=== PATIENT | female | born 1935 | race Caucasian/White ===

== ENCOUNTER 2017-06-19 09:42 | Outpatient (CLI) | payer MEDICARE, BC ==
[~2017-06-19 09:42] MED LIST: ACET-2119 PO; BAC10T PO; EZET1TAB33; FERR325T40 PO; GABA100C PO; LEVOTHYROXINE; LOPE2CAP PO; METF500T PO; TRAZ-91 PO; VIT D; [UNRECOGNIZED DRUG - CODE]
[2017-06-19 10:39] LABS: BASOPHILS % (AUTO) 0.4 % (0-1); EOSINOPHILS # (AUTO) 0.1 X10'3 (0-0.9); HEMATOCRIT 35.2 % (35.0-45.0); HEMOGLOBIN 11.8 g/dl (12.0-16.0); LYMPHOCYTES # (AUTO) 1.4 X10'3 (1.1-4.8); LYMPHOCYTES % (AUTO) 27.2 % (21-51); MEAN CORPUSCULAR HEMOGLOBIN 34.5 PG (27.0-31.0); MEAN CORPUSCULAR HGB CONC 33.7 % (33.0-36.5); MEAN CORPUSCULAR VOLUME 102.3 FL (78-98); MEAN PLATELET VOLUME 7.6 FL (7.4-10.4); MONOCYTES # (AUTO) 0.4 X10'3 (0-0.9); NEUTROPHILS # (AUTO) 3.4 X10'3 (1.8-7.7); NEUTROPHILS % (AUTO) 64.4 % (42-75); PLATELET COUNT 252 X10'3 (140-440); RED BLOOD COUNT 3.44 X10'6 (4.20-5.60); RED CELL DISTRIBUTION WIDTH 13.9 % (11.5-14.5); WHITE BLOOD COUNT 5.3 X10'3 (4.5-11.0)
[2017-06-19 10:43] LABS: CLARITY,URINE CLEAR (Clear); COLOR,URINE YELLOW (Yellow); GLUCOSE, URINE NEGATIVE (Neg); KETONES,URINE NEGATIVE (Neg); LEUKOCYTE ESTERASE ,URINE SMALL (Neg); NITRITES, URINE NEGATIVE (Neg); OCCULT BLOOD,URINE NEGATIVE (Neg); PROTEIN,URINE NEGATIVE (Neg); UROBILINOGEN,URINE 0.2 E.U/dL (0.2-1.0)
[2017-06-19 10:47] LABS: UA COLLECTION TYPE CLN CATCH MIDSTREAM
[2017-06-19 10:48] LABS: BACTERIA,URINE NONE SEEN /HPF (Neg); HYALINE CASTS 0-3 /LPF (NEGATIVE); RBC,URINE NONE SEEN /HPF (0-2); SQUAMOUS EPITHELIAL CELL,UR FEW /LPF (FEW); WBC,URINE 0-4 /HPF (0-4)
[2017-06-19 10:54] LABS: ALANINE AMINOTRANSFERASE 41 U/L (12-78); ALBUMIN 3.9 G/DL (3.4-5.0); ALKALINE PHOSPHATASE 39 IU/L (46-116); ANION GAP 7 (8-16); ASPARTATE AMINO TRANSFERASE 32 U/L (10-37); BILIRUBIN,TOTAL 0.3 MG/DL (0.1-1.0); BLOOD UREA NITROGEN 26 MG/DL (7-18); BUN/CREATININE RATIO 23.6 (6.6-38.0); CALCIUM 9.5 MG/DL (8.5-10.1); CHLORIDE 104 MMOL/L (99-107); GLUCOSE 118 MG/DL (70-104); POTASSIUM 4.6 MMOL/L (3.5-5.1); SODIUM 141 MMOL/L (135-145); TOTAL CARBON DIOXIDE 30.1 MMOL/L (24-32); eGFR 48 ML/MIN
[2017-06-19 11:40] LABS: HEMOGLOBIN A1C 5.8 % (4.5-6.2)
== END 2017-06-19 23:59 | disposition home or self-care (01) ==
LOC: LAB 09:42
PROVIDERS: ATTEND Specialist
DX: Z01.818 Encounter for other preprocedural examination (principal); Z51.81 Encounter for therapeutic drug level monitoring; N39.0 Urinary tract infection, site not specified; E11.8 Type 2 diabetes mellitus with unspecified complications; F17.200 Nicotine dependence, unspecified, uncomplicated; Z90.710 Acquired absence of both cervix and uterus; Z98.890 Other specified postprocedural states
CPT/HCPCS: 36415; 80053; 81001; 83036; 85025; 85610; 87070; 87088

== ENCOUNTER 2017-07-03 10:41 | Inpatient (IN) | payer MEDICARE, BC ==
[~2017-07-03] VITALS: Ht 162.6 cm; Wt 70.0 kg
[2017-07-03] VITALS (18 sets, daily range): BP systolic 78–160; BP diastolic 38–90
[~2017-07-03 10:41] MED LIST changes: -ACET-2119 PO; -BAC10T PO; +CHOL100046 PO; -EZET1TAB33; +FERR325T32 PO; -FERR325T40 PO; +HYDR-565 PO; +LEVO50TA PO; -LEVOTHYROXINE; -LOPE2CAP PO; +MAGN500C16 PO; +OMEG1CAP2 PO; +OMEP20CA10 PO; +SIMV20TA5 PO; +VANCOMYCIN INJ 1000 MG in NORMAL SALINE 250ml IV.SOLN IV ONE; -VIT D; +acetaminophen 325mg tablet PO ONE; +ceFAZolin 2gm in dextrose, iso 100 ML IV ONE; +famotidine 20mg tablet PO ONE; +gabapentin 300mg capsule PO ONE; +oxyCODONE SR 10mg (sust. release) tab PO ONE; +ringers solution, lacted 1,000 ML IV SCH; +tranexamic acid inj. 1,000 MG in normal saline 100ml IV soln 90 ML IV ONE
[2017-07-03] MEDS ORDERED: LIDOcaine 1% (10mg/ml) 2ml vial ONE (11:59)
[2017-07-03] MEDS ORDERED: bacitracin inj 150,000 UNIT in sodium chloride irrig. sol 3,000 ML IR ONE (12:00)
[2017-07-03] MEDS: normal saline 500ml IV soln 500 ML IV SCH (12:50)
[2017-07-03] MEDS ORDERED: ROPIVAcaine 0.5% (5mg/ml) 30ml vial ONE ×2 (13:27→13:48)
[2017-07-03] MEDS ORDERED: MORPHINE SULFATE/PF 0.5 MG/ML 10ML AMPUL ONE (13:48)
[2017-07-03] MEDS ORDERED: tetracaine 1% (10mg/ml) pres. free inj. ONE (13:48)
[2017-07-03] MEDS ORDERED: MIDAZolam 1mg/ml 10ml vial ONE (13:50)
[2017-07-03] MEDS ORDERED: fentaNYL/PF 50MCG/1 ML 2ML syringe ONE (13:50)
[2017-07-03] MEDS ORDERED: propofol inj 20 ML IV ONE (14:16)
[2017-07-03] MEDS ORDERED: ePHEDrine 50MG/ML INJ. ONE (14:31)
[2017-07-03] MEDS ORDERED: naloxone 2mg/2ml inj 2 MG in normal saline 500ml IV soln 500 ML IV PRN (15:08)
[2017-07-03] MEDS ORDERED: ringers solution, lacted 1,000 ML IV SCH (15:08)
[2017-07-03] MEDS ORDERED: proCHLORperazine 10 MG/2 ml inj IV PRN (15:10)
[2017-07-03] MEDS ORDERED: diphenhydrAMINE 50 mg/ml inj IV PRN (15:10)
[2017-07-03] MEDS ORDERED: ondansetron/PF 4mg/2ml inj IV PRN ×2 (15:10)
[2017-07-03] MEDS ORDERED: meperidine/PF 25mg/ml syringe IV PRN ×3 (15:10)
[2017-07-03] MEDS ORDERED: ceFAZolin 1000mg inj ONE (15:37)
[2017-07-03] MEDS ORDERED: magnesium hydroxide 30ml (MOM) UD suspension PO PRN (15:50)
[2017-07-03] MEDS ORDERED: diphenhydrAMINE 25mg capsule PO PRN ×2 (15:50)
[2017-07-03] MEDS ORDERED: MESSAGE TO PHARMACY PO ONE (15:50)
[2017-07-03] MEDS ORDERED: dextrose 50%-water 50ml dispensing syringe IV PRN ×2 (15:50)
[2017-07-03] MEDS ORDERED: acetaminophen 325mg tablet PO PRN (15:50)
[2017-07-03] MEDS ORDERED: HYDROmorphone inj. 0.5 MG/0.5 ML DISP.SYRIN IV PRN (15:50)
[2017-07-03] MEDS ORDERED: dextrose ORAL solution 15 GM/59 ML bottle PO PRN ×2 (15:50)
[2017-07-03] MEDS ORDERED: bisacodyl 10mg suppository rectal RC PRN (15:50)
[2017-07-03] MEDS ORDERED: insulin Lispro (HumaLOG) vial - multi-dose SQ SCH (15:50)
[2017-07-03] MEDS ORDERED: glucagon, human recombinant 1mg kit SUBCUT PRN (15:50)
[2017-07-03] MEDS: cefazolin 1gm/NS 100mL 100 ML IV SCH (17:52)
[2017-07-03] MEDS: potassium cl 20mEq in 1/2 NS 1,000 ML IV SCH ×2 (17:53→23:50)
[2017-07-03] MEDS: ondansetron/PF 4mg/2ml inj IV PRN (18:57)
[2017-07-03] MEDS ORDERED: vancomycin/NS 1 GM ADD-VANTAGE 250 ML IV SCH (20:00)
[2017-07-03] MEDS: insulin glargine (Lantus) pen - multi-dose SQ SCH (21:00)
[2017-07-03] MEDS: metFORMIN 500mg tablet PO SCH (21:25)
[2017-07-03] MEDS: sennosides 8.6mg tablet PO SCH (21:25)
[2017-07-03] MEDS: acetaminophen 325mg tablet PO SCH (21:26)
[2017-07-03] MEDS: ascorbic acid 500mg tablet PO SCH (21:26)
[2017-07-04] MEDS: cefazolin 1gm/NS 100mL 100 ML IV SCH (00:28)
[2017-07-04 02:00] VITALS: BP 100/54
[2017-07-04] MEDS: oxyCODONE IR 5mg (immed. release) tablet PO PRN ×4 (02:59→19:40)
[2017-07-04] MEDS: acetaminophen 325mg tablet PO SCH ×4 (02:59→20:38)
[2017-07-04] MEDS: potassium cl 20mEq in 1/2 NS 1,000 ML IV SCH (05:24)
[2017-07-04 06:00] VITALS: BP 94/72
[2017-07-04 06:26] LABS: BASOPHILS % (AUTO) 0.1 % (0-1); EOSINOPHILS # (AUTO) 0.1 X10'3 (0-0.9); EOSINOPHILS % (AUTO) 1.4 % (0-6); HEMATOCRIT 25.5 % (35.0-45.0); HEMOGLOBIN 8.5 g/dl (12.0-16.0); LYMPHOCYTES # (AUTO) 1.1 X10'3 (1.1-4.8); LYMPHOCYTES % (AUTO) 16.5 % (21-51); MEAN CORPUSCULAR HEMOGLOBIN 33.9 PG (27.0-31.0); MEAN CORPUSCULAR HGB CONC 33.3 % (33.0-36.5); MEAN CORPUSCULAR VOLUME 101.8 FL (78-98); MEAN PLATELET VOLUME 7.2 FL (7.4-10.4); MONOCYTES # (AUTO) 0.5 X10'3 (0-0.9); MONOCYTES % (AUTO) 7.9 % (2-12); NEUTROPHILS # (AUTO) 4.9 X10'3 (1.8-7.7); NEUTROPHILS % (AUTO) 74.1 % (42-75); PLATELET COUNT 190 X10'3 (140-440); RED CELL DISTRIBUTION WIDTH 13.8 % (11.5-14.5); WHITE BLOOD COUNT 6.6 X10'3 (4.5-11.0)
[2017-07-04 06:34] LABS: INR 1.2 INR; PROTHROMBIN TIME 12.2 SECONDS (9.0-12.0)
[2017-07-04 06:58] LABS: ANION GAP 5 (8-16); CHLORIDE 105 MMOL/L (99-107); POTASSIUM 5.7 MMOL/L (3.5-5.1); SODIUM 138 MMOL/L (135-145); TOTAL CARBON DIOXIDE 28.5 MMOL/L (24-32)
[2017-07-04] MEDS: ascorbic acid 500mg tablet PO SCH ×2 (08:00→20:38)
[2017-07-04] MEDS: pantoprazole 40mg Tablet.DR PO SCH (08:01)
[2017-07-04] MEDS: atorvastatin 10mg tablet PO SCH (08:01)
[2017-07-04] MEDS: multivitamins, therapeutics tablet PO SCH (08:01)
[2017-07-04] MEDS: levoTHYROXINE 25mcg tablet PO SCH (08:01)
[2017-07-04 10:00] VITALS: BP 137/81
[2017-07-04] MEDS ORDERED: warfarin 7.5mg tablet PO ONE (10:00)
[2017-07-04] MEDS: sodium chloride 0.45% 1,000 ML IV SCH ×2 (11:16→19:44)
[2017-07-04] MEDS: normal saline 500ml IV soln 500 ML IV SCH (13:33)
[2017-07-04 16:26] VITALS: BP 119/58
[2017-07-04] MEDS: ondansetron/PF 4mg/2ml inj IV PRN (17:03)
[2017-07-04] MEDS ORDERED: metoclopramide 5 mg/ml inj IV PRN (18:10)
[2017-07-04 18:30] VITALS: BP 140/66
[2017-07-04] MEDS: sennosides 8.6mg tablet PO SCH (20:37)
[2017-07-04] MEDS: metFORMIN 500mg tablet PO SCH (20:37)
[2017-07-04] MEDS: insulin glargine (Lantus) pen - multi-dose SQ SCH (20:40)
[2017-07-04 22:00] VITALS: BP 150/66
[2017-07-05] MEDS: oxyCODONE IR 5mg (immed. release) tablet PO PRN ×3 (00:53→17:37)
[2017-07-05] MEDS: acetaminophen 325mg tablet PO SCH ×3 (01:54→14:08)
[2017-07-05 06:00] VITALS: BP 154/71
[2017-07-05 06:22] LABS: BASOPHILS % (AUTO) 0.3 % (0-1); EOSINOPHILS % (AUTO) 0 % (0-6); HEMATOCRIT 29.5 % (35.0-45.0); HEMOGLOBIN 10.1 g/dl (12.0-16.0); LYMPHOCYTES # (AUTO) 0.6 X10'3 (1.1-4.8); MEAN CORPUSCULAR HEMOGLOBIN 34.4 PG (27.0-31.0); MEAN CORPUSCULAR HGB CONC 34.4 % (33.0-36.5); MEAN PLATELET VOLUME 7.2 FL (7.4-10.4); MONOCYTES # (AUTO) 0.5 X10'3 (0-0.9); MONOCYTES % (AUTO) 6.9 % (2-12); NEUTROPHILS # (AUTO) 6.6 X10'3 (1.8-7.7); NEUTROPHILS % (AUTO) 84.8 % (42-75); PLATELET COUNT 239 X10'3 (140-440); RED BLOOD COUNT 2.95 X10'6 (4.20-5.60); RED CELL DISTRIBUTION WIDTH 13.9 % (11.5-14.5); WHITE BLOOD COUNT 7.8 X10'3 (4.5-11.0)
[2017-07-05 06:28] LABS: INR 1.7 INR; PROTHROMBIN TIME 17.6 SECONDS (9.0-12.0)
[2017-07-05] MEDS: multivitamins, therapeutics tablet PO SCH (08:24)
[2017-07-05] MEDS: pantoprazole 40mg Tablet.DR PO SCH (08:24)
[2017-07-05] MEDS: ascorbic acid 500mg tablet PO SCH ×2 (08:24→20:42)
[2017-07-05] MEDS: atorvastatin 10mg tablet PO SCH (08:24)
[2017-07-05] MEDS: levoTHYROXINE 25mcg tablet PO SCH (08:24)
[2017-07-05 10:00] VITALS: BP 150/68
[2017-07-05] MEDS ORDERED: warfarin 3mg tablet PO ONE (10:00)
[2017-07-05] MEDS: ondansetron/PF 4mg/2ml inj IV PRN (14:04)
[2017-07-05] MEDS ORDERED: acetaminophen 325mg tablet PO PRN (15:50)
[2017-07-05 18:30] VITALS: BP 143/75
[2017-07-05] MEDS: normal saline 500ml IV soln 500 ML IV SCH (19:02)
[2017-07-05] MEDS: metFORMIN 500mg tablet PO SCH (20:42)
[2017-07-05] MEDS: sennosides 8.6mg tablet PO SCH (20:43)
[2017-07-05] MEDS: insulin glargine (Lantus) pen - multi-dose SQ SCH (21:00)
[2017-07-05] MEDS ORDERED: gabapentin 100mg capsule PO SCH (21:00)
[2017-07-05 22:00] VITALS: BP 161/71
[2017-07-06] MEDS: oxyCODONE IR 5mg (immed. release) tablet PO PRN (05:28)
[2017-07-06 06:00] VITALS: BP 159/75
[2017-07-06 06:22] LABS: BASOPHILS # (AUTO) 0.1 X10'3 (0-0.2); BASOPHILS % (AUTO) 0.6 % (0-1); EOSINOPHILS % (AUTO) 0.1 % (0-6); HEMATOCRIT 29.9 % (35.0-45.0); HEMOGLOBIN 10.5 g/dl (12.0-16.0); LYMPHOCYTES # (AUTO) 0.9 X10'3 (1.1-4.8); LYMPHOCYTES % (AUTO) 10.2 % (21-51); MEAN CORPUSCULAR HEMOGLOBIN 34.9 PG (27.0-31.0); MEAN CORPUSCULAR HGB CONC 35.2 % (33.0-36.5); MEAN CORPUSCULAR VOLUME 99.1 FL (78-98); MEAN PLATELET VOLUME 7.3 FL (7.4-10.4); MONOCYTES # (AUTO) 0.7 X10'3 (0-0.9); NEUTROPHILS # (AUTO) 7.5 X10'3 (1.8-7.7); NEUTROPHILS % (AUTO) 81.1 % (42-75); PLATELET COUNT 274 X10'3 (140-440); RED BLOOD COUNT 3.02 X10'6 (4.20-5.60); RED CELL DISTRIBUTION WIDTH 13.6 % (11.5-14.5); WHITE BLOOD COUNT 9.3 X10'3 (4.5-11.0)
[2017-07-06 06:38] LABS: PROTHROMBIN TIME 20.2 SECONDS (9.0-12.0)
[2017-07-06] MEDS: atorvastatin 10mg tablet PO SCH (07:03)
[2017-07-06] MEDS: multivitamins, therapeutics tablet PO SCH (07:04)
[2017-07-06] MEDS: ascorbic acid 500mg tablet PO SCH (07:04)
[2017-07-06] MEDS: pantoprazole 40mg Tablet.DR PO SCH (07:04)
[2017-07-06] MEDS: levoTHYROXINE 25mcg tablet PO SCH (07:04)
[2017-07-06 10:00] VITALS: BP 124/69
[2017-07-06] MEDS ORDERED: warfarin 1mg tablet PO ONE (10:00)
== END 2017-07-06 13:40 | DRG 470 ==
LOC: PAS IN 12:33 → EDSTATUS 14:30 → ORTHO 4S 17:45
PROVIDERS: ADMIT Specialist; ATTEND Specialist
PROC: 3E0T3BZ Introduction of Anesthetic Agent into Peripheral Nerves and Plexi, Percutaneous Approach (ICD-10-PCS; 2017-07-03)
PROC: 0SRC0J9 Replacement of Right Knee Joint with Synthetic Substitute, Cemented, Open Approach (ICD-10-PCS; principal; 2017-07-03 13:41)
DX: M17.11 Unilateral primary osteoarthritis, right knee (principal); E11.9 Type 2 diabetes mellitus without complications; D62 Acute posthemorrhagic anemia; E03.9 Hypothyroidism, unspecified; K21.9 Gastro-esophageal reflux disease without esophagitis; E78.5 Hyperlipidemia, unspecified; I10 Essential (primary) hypertension; M21.161 Varus deformity, not elsewhere classified, right knee; M25.761 Osteophyte, right knee; Z96.641 Presence of right artificial hip joint; Z90.710 Acquired absence of both cervix and uterus; Z88.2 Allergy status to sulfonamides; Z79.84 Long term (current) use of oral hypoglycemic drugs; Z79.899 Other long term (current) drug therapy; Z79.01 Long term (current) use of anticoagulants; Z87.11 Personal history of peptic ulcer disease; Z87.891 Personal history of nicotine dependence
CPT/HCPCS: 36415; 73560; 80051; 82948; 85025; 85610; 97110; 97116; 97530; 97535; A6449; A6455; A7000; C1713; C1758; C1776; J0690; J1170; J1815; J2250; J2274; J2405; J2704; J2765; J2795; J3010; J3370; J3490; J7030; J7120

== ENCOUNTER 2020-04-23 19:01 | Emergency (ER) | payer MEDICARE, BC ==
[~2020-04-23] VITALS: Ht 165.1 cm; Wt 60.5 kg
[~2020-04-23 19:01] MED LIST changes: +HYDR-4353 PO; -HYDR-565 PO; -OMEP20CA10 PO; +OMEP20CA15 PO; +SIMV-42 PO; -SIMV20TA5 PO; -VANCOMYCIN INJ 1000 MG in NORMAL SALINE 250ml IV.SOLN IV ONE; -acetaminophen 325mg tablet PO ONE; -ceFAZolin 2gm in dextrose, iso 100 ML IV ONE; -famotidine 20mg tablet PO ONE; -gabapentin 300mg capsule PO ONE; -oxyCODONE SR 10mg (sust. release) tab PO ONE; -ringers solution, lacted 1,000 ML IV SCH; -tranexamic acid inj. 1,000 MG in normal saline 100ml IV soln 90 ML IV ONE
--- NOTE | 2020-04-23 19:05 | NUR ---
MARISABEL ([facility]) # [phone]
[2020-04-23] MEDS ORDERED: diazepam 5mg tablet PO ONE (19:25)
--- NOTE | 2020-04-23 20:33 | NUR ---
got pt up to the BR and she walked with a FWW and did fairly well.
[2020-04-23] MEDS ORDERED: WALKERFR (20:35)
[2020-04-23] MEDS ORDERED: ONDA4TAB6 PO (20:35)
[2020-04-23] MEDS ORDERED: HYDR-3965 PO (20:35)
[2020-04-23] MEDS ORDERED: METH-360 PO (20:36)
[2020-04-23 20:42] VITALS: BP 140/66
== END 2020-04-23 20:42 | disposition home or self-care (01) ==
LOC: ER 19:01
DX: S22.080A Wedge compression fracture of T11-T12 vertebra, initial encounter for closed fracture (principal); S29.019A Strain of muscle and tendon of unspecified wall of thorax, initial encounter; S39.012A Strain of muscle, fascia and tendon of lower back, initial encounter; E78.00 Pure hypercholesterolemia, unspecified; E11.9 Type 2 diabetes mellitus without complications; E07.9 Disorder of thyroid, unspecified; G89.29 Other chronic pain; M54.9 Dorsalgia, unspecified; Z90.49 Acquired absence of other specified parts of digestive tract; X50.0XXA Overexertion from strenuous movement or load, initial encounter; Z88.2 Allergy status to sulfonamides; Z79.899 Other long term (current) drug therapy; Z79.84 Long term (current) use of oral hypoglycemic drugs; Z98.890 Other specified postprocedural states; Y93.89 Activity, other specified; Y92.89 Other specified places as the place of occurrence of the external cause; Y99.8 Other external cause status
CPT/HCPCS: 72131; 72192; 99285

== ENCOUNTER 2020-04-28 06:57 | Inpatient (IN) | payer MEDICARE, BC ==
[~2020-04-28] VITALS: Ht 160 cm; Wt 60.5 kg
[~2020-04-28 06:57] MED LIST changes: +HYDR-3965 PO; +METH-360 PO; +ONDA4TAB6 PO; +WALKERFR
[2020-04-28] MEDS ORDERED: normal saline 1000ML IV soln IVB ONE (07:25)
[2020-04-28] MEDS ORDERED: morphine 4 MG/ML inj SYRINge IV ONE (07:25)
[2020-04-28] MEDS ORDERED: ondansetron/PF 4mg/2ml inj IV ONE (07:25)
--- NOTE | 2020-04-28 07:46 | NUR ---
Pt arrives to ER with back brace on, kept in place
[2020-04-28 08:10] LABS: CLARITY,URINE CLOUDY (Clear); COLOR,URINE YELLOW (Yellow); GLUCOSE, URINE NEGATIVE (Neg); KETONES,URINE NEGATIVE (Neg); LEUKOCYTE ESTERASE ,URINE LARGE (Neg); NITRITES, URINE NEGATIVE (Neg); OCCULT BLOOD,URINE SMALL (Neg); PROTEIN,URINE 30 mg/dl (Neg); UROBILINOGEN,URINE 0.2 E.U/dL (0.2-1.0)
[2020-04-28 08:18] LABS: UA COLLECTION TYPE CLN CATCH MIDSTREAM
[2020-04-28 08:19] LABS: BACTERIA,URINE 1+ /HPF (Neg); RBC,URINE 0-2 /HPF (0-2); WBC,URINE TNTC /HPF (0-4)
[2020-04-28 08:20] LABS: MUCUS STRANDS FEW /LPF (Neg); RENAL CELLS, URINE FEW /HPF; SQUAMOUS EPITHELIAL CELL,UR FEW /LPF (FEW); TRANSITIONAL EPI CELLS,URINE FEW /HPF
[2020-04-28 08:23] LABS: WBC CLUMPS,URINE FEW /HPF (NEGATIVE)
--- NOTE | 2020-04-28 08:24 | NUR ---
Pt feeling better after morphine. Lab at bedside to redraw.
[2020-04-28 08:36] LABS: BASOPHILS % (AUTO) 0.2 % (0-1); EOSINOPHILS % (AUTO) 0.6 % (0-6); HEMATOCRIT 27.9 % (35.0-45.0); HEMOGLOBIN 9.7 g/dl (12.0-16.0); LYMPHOCYTES # (AUTO) 1.3 X10'3 (1.1-4.8); LYMPHOCYTES % (AUTO) 21.5 % (21-51); MEAN CORPUSCULAR HEMOGLOBIN 38.1 PG (27.0-31.0); MEAN CORPUSCULAR HGB CONC 34.6 g/dL (33.0-36.5); MEAN CORPUSCULAR VOLUME 110.2 FL (78-98); MEAN PLATELET VOLUME 7.3 FL (7.4-10.4); MONOCYTES # (AUTO) 0.5 X10'3 (0-0.9); MONOCYTES % (AUTO) 9.1 % (2-12); NEUTROPHILS # (AUTO) 4.1 X10'3 (1.8-7.7); NEUTROPHILS % (AUTO) 68.6 % (42-75); PLATELET COUNT 264 X10'3 (140-440); RED BLOOD COUNT 2.53 X10'6 (4.20-5.60); RED CELL DISTRIBUTION WIDTH 14.6 % (11.5-14.5); WHITE BLOOD COUNT 5.9 X10'3 (4.5-11.0)
[2020-04-28 08:51] LABS: ALANINE AMINOTRANSFERASE 37 U/L (12-78); ALBUMIN 3.5 G/DL (3.4-5.0); ALBUMIN/GLOBULIN RATIO 0.5 (1.1-1.5); ALKALINE PHOSPHATASE 45 IU/L (46-116); ANION GAP 8 (8-16); ASPARTATE AMINO TRANSFERASE 40 U/L (10-37); BILIRUBIN,TOTAL 0.4 MG/DL (0.1-1.0); BLOOD UREA NITROGEN 63 MG/DL (7-18); BUN/CREATININE RATIO 55.3 (6.6-38.0); CHLORIDE 106 MMOL/L (99-107); CREATININE 1.14 MG/DL (0.40-0.90); GLUCOSE 106 MG/DL (70-104); POTASSIUM 4.4 MMOL/L (3.5-5.1); SODIUM 139 MMOL/L (135-145); TOTAL CARBON DIOXIDE 24.6 MMOL/L (24-32); TOTAL PROTEIN 10.1 G/DL (6.4-8.2); eGFR 45 ML/MIN
[2020-04-28 08:52] LABS: CALCIUM 13.1 MG/DL (8.5-10.1)
[2020-04-28 09:10] LABS: ANISOCYTOSIS 1+; PLATELET ESTIMATE NORMAL
[2020-04-28] MEDS ORDERED: CefTRIAXone/D5W-Rocephin 1gm 50 ML IV ONE (11:00)
[2020-04-28] MEDS ORDERED: TRAZ-251 PO (11:04)
[2020-04-28] MEDS ORDERED: GABA-530 PO (11:04)
[2020-04-28] MEDS ORDERED: METH750T3 PO (11:08)
[2020-04-28] MEDS: normal saline 1000ml 1,000 ML IV SCH (11:20)
[2020-04-28] MEDS ORDERED: magnesium 2GM in 50ml NS 50 ML IV PRN (11:20)
[2020-04-28] MEDS ORDERED: metoclopramide 5 mg/ml inj IV PRN (11:20)
[2020-04-28] MEDS ORDERED: magnesium Cl slow-release 64mg tablet PO PRN (11:20)
[2020-04-28] MEDS ORDERED: bisacodyl 10mg suppository rectal RC PRN (11:20)
[2020-04-28] MEDS ORDERED: acetaminophen 325mg tablet PO PRN ×2 (11:20)
[2020-04-28] MEDS ORDERED: mag hydrox/Alum hydrox/simeth 30ml oral suspension PO PRN (11:20)
[2020-04-28] MEDS ORDERED: magnesium 4gm in 100ml NS 100 ML IV PRN (11:20)
[2020-04-28] MEDS ORDERED: potassium Cl 20 mEq SR tablet PO PRN ×2 (11:20)
[2020-04-28] MEDS ORDERED: potassium CL 10mEq/100ml bag 100 ML IV PRN ×2 (11:20)
[2020-04-28] MEDS ORDERED: magnesium hydroxide 30ml (MOM) UD suspension PO PRN (11:20)
[2020-04-28] MEDS ORDERED: acetaminophen 650mg rectal suppository RC PRN (11:20)
[2020-04-28] MEDS ORDERED: HYDROcodone/acetaminophen 5mg/325mg tablet PO PRN (11:20)
[2020-04-28] MEDS ORDERED: ondansetron/PF 4mg/2ml inj IV PRN (11:20)
--- NOTE | 2020-04-28 12:12 | NUR ---
Assisted to commode, pivot transfer, to void, one person min assist
[2020-04-28] MEDS: HYDROcodone/acetaminophen 10/325mg tab PO PRN ×2 (12:29→19:18)
[2020-04-28 13:00] VITALS: BP 153/63
[2020-04-28 18:00] VITALS: BP 117/48
[2020-04-28 18:05] LABS: HEMOGLOBIN A1C 7.1 % (4.5-6.2)
--- NOTE | 2020-04-28 18:24 | NUR ---
Problems reprioritized. Patient report given, questions answered & plan of care reviewed with JARROD SAHNI.
[2020-04-28] MEDS: gabapentin 100mg capsule PO SCH (19:17)
[2020-04-28] MEDS ORDERED: enoxaparin 40mg/0.4ml syringe SQ SCH (20:00)
[2020-04-28] MEDS: K and/or MAG REPLACEMENT MC SCH (20:00)
[2020-04-28] MEDS: calcium carbonate 500mg tablet PO SCH (21:00)
[2020-04-28] MEDS: atorvastatin 10mg tablet PO SCH (21:30)
[2020-04-28] MEDS: magnesium oxide 400mg tablet PO SCH (21:30)
[2020-04-28] MEDS: traZODone 50mg tablet PO SCH (21:30)
[2020-04-28 23:46] VITALS: BP 99/42
[2020-04-29] MEDS: cyclobenzaprine 10mg tablet PO SCH ×4 (00:27→21:00)
[2020-04-29] MEDS: normal saline 1000ml 1,000 ML IV SCH ×2 (01:38→05:54)
[2020-04-29 06:00] VITALS: BP 106/43
[2020-04-29 06:04] LABS: BASOPHILS % (AUTO) 0.6 % (0-1); EOSINOPHILS # (AUTO) 0.1 X10'3 (0-0.9); EOSINOPHILS % (AUTO) 1.5 % (0-6); HEMATOCRIT 23.8 % (35.0-45.0); HEMOGLOBIN 8.1 g/dl (12.0-16.0); LYMPHOCYTES # (AUTO) 1.5 X10'3 (1.1-4.8); LYMPHOCYTES % (AUTO) 29.5 % (21-51); MEAN CORPUSCULAR HEMOGLOBIN 37.7 PG (27.0-31.0); MEAN CORPUSCULAR HGB CONC 33.9 g/dL (33.0-36.5); MEAN PLATELET VOLUME 7.4 FL (7.4-10.4); MONOCYTES # (AUTO) 0.5 X10'3 (0-0.9); MONOCYTES % (AUTO) 9.3 % (2-12); NEUTROPHILS % (AUTO) 59.1 % (42-75); PLATELET COUNT 227 X10'3 (140-440); RED BLOOD COUNT 2.15 X10'6 (4.20-5.60); WHITE BLOOD COUNT 5.1 X10'3 (4.5-11.0)
[2020-04-29 06:12] LABS: ALBUMIN 2.9 G/DL (3.4-5.0); ANION GAP 5 (8-16); BLOOD UREA NITROGEN 51 MG/DL (7-18); BUN/CREATININE RATIO 43.2 (6.6-38.0); CALCIUM 11.2 MG/DL (8.5-10.1); CHLORIDE 106 MMOL/L (99-107); CREATININE 1.18 MG/DL (0.40-0.90); GLUCOSE 83 MG/DL (70-104); MAGNESIUM 1.9 MG/DL (1.5-2.4); POTASSIUM 4.5 MMOL/L (3.5-5.1); SODIUM 137 MMOL/L (135-145); TOTAL CARBON DIOXIDE 25.7 MMOL/L (24-32); eGFR 44 ML/MIN
--- NOTE | 2020-04-29 06:14 | NUR ---
Problems reprioritized. Patient report given, questions answered & plan of care reviewed with JARROD Stokes.
--- NOTE | 2020-04-29 06:34 | NUR ---
Patient in room ORTHO 4020B. I have received report from JARROD SAHNI and had the opportunity to ask questions and assume patient care.
[2020-04-29] MEDS: HYDROmorphone inj. 0.5 MG/0.5 ML DISP.SYRIN IV PRN ×2 (06:48→20:06)
[2020-04-29 07:03] LABS: PLATELET ESTIMATE NORMAL; SCHISTOCYTES FEW; STOMATOCYTES 1+
[2020-04-29] MEDS: K and/or MAG REPLACEMENT MC SCH ×2 (07:22→20:00)
[2020-04-29] MEDS: gabapentin 100mg capsule PO SCH ×2 (07:38→20:04)
[2020-04-29] MEDS: CefTRIAXone/D5W-Rocephin 1gm 50 ML IV SCH (07:39)
[2020-04-29] MEDS ORDERED: non-formulary drug (Omega-3 Fatty Acids/Fish Oil (Fish Oil 1,000 mg Capsule) 1 TAB) PO SCH (08:00)
[2020-04-29 10:00] VITALS: BP 105/37
--- NOTE | 2020-04-29 13:34 | NUR ---
Page Sent PAGER ID: [phone] MESSAGE: AMA [id number]: GARETH JACOBS [id number]..PT IS CLAUSTROPHOBIC, CAN I GET AN ORDER FOR ATIVAN FOR MRI?
[2020-04-29] MEDS ORDERED: LORazepam 2 mg/ml vial IM ONE (13:40)
--- NOTE | 2020-04-29 14:49 | NUR ---
DM Consult: Pt A1C 7.1 appropriate given age. Noted Pt no BM since 04/21 8 days without routine bowel care. ELLIE d/w RN regarding routine bowel care as well as opioid antagonist if MD agreeable since receiving dilaudid. To f/u 05/03 for initial assessment. Addendum: 04/29/20 at [address] Amended: Links added.
[2020-04-29 18:00] VITALS: BP 138/50
--- NOTE | 2020-04-29 18:30 | NUR ---
Patient in room ORTHO 4020. I have received report from Divya GARAY and had the opportunity to ask questions and assume patient care.
--- NOTE | 2020-04-29 18:36 | NUR ---
Problems reprioritized. Patient report given, questions answered & plan of care reviewed with JARROD BERNAL.
[2020-04-29] MEDS: enoxaparin 30mg/0.3ml syringe SQ SCH (20:00)
[2020-04-29] MEDS: atorvastatin 10mg tablet PO SCH (20:04)
[2020-04-29] MEDS: docusate sod 100mg capsule PO SCH (20:04)
[2020-04-29] MEDS: lactobacillus rhamnosus 10,000 MMU CELLS/CAPSULE PO SCH (20:04)
[2020-04-29] MEDS: magnesium oxide 400mg tablet PO SCH (20:05)
[2020-04-29] MEDS: calcium carbonate 500mg tablet PO SCH (21:00)
[2020-04-29] MEDS: traZODone 50mg tablet PO SCH (21:00)
[2020-04-29 22:00] VITALS: BP 117/63
[2020-04-30] VITALS (10 sets, daily range): BP systolic 103–150; BP diastolic 45–76
[2020-04-30] MEDS: normal saline 1000ml 1,000 ML IV SCH ×4 (00:48→23:35)
--- NOTE | 2020-04-30 06:30 | NUR ---
Problems reprioritized. Patient report given, questions answered & plan of care reviewed with Erwin GARAY.
[2020-04-30 06:47] LABS: BASOPHILS % (AUTO) 0.4 % (0-1); EOSINOPHILS # (AUTO) 0.1 X10'3 (0-0.9); EOSINOPHILS % (AUTO) 1.1 % (0-6); HEMOGLOBIN 8.2 g/dl (12.0-16.0); LYMPHOCYTES # (AUTO) 1.2 X10'3 (1.1-4.8); LYMPHOCYTES % (AUTO) 25.8 % (21-51); MEAN CORPUSCULAR HEMOGLOBIN 37.6 PG (27.0-31.0); MEAN CORPUSCULAR HGB CONC 34.2 g/dL (33.0-36.5); MEAN PLATELET VOLUME 7.1 FL (7.4-10.4); MONOCYTES # (AUTO) 0.4 X10'3 (0-0.9); MONOCYTES % (AUTO) 8.9 % (2-12); NEUTROPHILS % (AUTO) 63.8 % (42-75); PLATELET COUNT 218 X10'3 (140-440); RED BLOOD COUNT 2.18 X10'6 (4.20-5.60); RED CELL DISTRIBUTION WIDTH 14.6 % (11.5-14.5); WHITE BLOOD COUNT 4.8 X10'3 (4.5-11.0)
[2020-04-30 06:55] LABS: ALBUMIN 2.8 G/DL (3.4-5.0); ANION GAP 6 (8-16); BLOOD UREA NITROGEN 33 MG/DL (7-18); BUN/CREATININE RATIO 34.7 (6.6-38.0); CALCIUM 10.4 MG/DL (8.5-10.1); CHLORIDE 108 MMOL/L (99-107); CREATININE 0.95 MG/DL (0.40-0.90); GLUCOSE 80 MG/DL (70-104); MAGNESIUM 1.7 MG/DL (1.5-2.4); SODIUM 142 MMOL/L (135-145); TOTAL CARBON DIOXIDE 28.1 MMOL/L (24-32); eGFR 56 ML/MIN
[2020-04-30] MEDS: CefTRIAXone/D5W-Rocephin 1gm 50 ML IV SCH (07:53)
[2020-04-30] MEDS: cyclobenzaprine 10mg tablet PO SCH ×3 (07:55→20:53)
[2020-04-30] MEDS: lactobacillus rhamnosus 10,000 MMU CELLS/CAPSULE PO SCH ×2 (07:55→20:52)
[2020-04-30] MEDS: gabapentin 100mg capsule PO SCH ×2 (07:55→20:52)
[2020-04-30] MEDS: docusate sod 100mg capsule PO SCH ×2 (07:55→20:49)
[2020-04-30] MEDS: K and/or MAG REPLACEMENT MC SCH ×2 (07:57→20:00)
[2020-04-30] MEDS ORDERED: LIDOcaine 1%/PF 5ML 10 MG/ML VIAL ONE (08:12)
[2020-04-30] MEDS ORDERED: iohexol 300 MG/1 ML 50ml polymer ONE (08:12)
[2020-04-30] MEDS ORDERED: midazolam 2 mg/2 ml injection ONE ×2 (08:12→11:07)
[2020-04-30] MEDS ORDERED: fentaNYL/PF 50MCG/1 ML 2ML syringe ONE ×2 (08:12→11:07)
[2020-04-30] MEDS ORDERED: diphenhydrAMINE 50 mg/ml inj ONE (08:12)
[2020-04-30] MEDS ORDERED: clindamycin 600mg/D5W 50ml 50 ML IV ONE (09:23)
[2020-04-30] MEDS ORDERED: normal saline 1000ml 1,000 ML IV SCH (10:15)
[2020-04-30] MEDS: HYDROcodone/acetaminophen 10/325mg tab PO PRN (15:44)
--- NOTE | 2020-04-30 18:21 | NUR ---
Problems reprioritized. Patient report given, questions answered & plan of care reviewed with Yaritza GARAY.
--- NOTE | 2020-04-30 18:30 | NUR ---
Patient in room ORTHO 4020. I have received report from Ce GARAY and had the opportunity to ask questions and assume patient care.
[2020-04-30] MEDS: calcium carbonate 500mg tablet PO SCH (20:20)
[2020-04-30] MEDS: enoxaparin 30mg/0.3ml syringe SQ SCH (20:53)
[2020-04-30] MEDS: nystatin 15 GM powder TP SCH (20:53)
[2020-04-30] MEDS: traZODone 50mg tablet PO SCH (20:53)
[2020-04-30] MEDS: atorvastatin 10mg tablet PO SCH (20:54)
[2020-04-30] MEDS: magnesium oxide 400mg tablet PO SCH (20:54)
[2020-05-01 02:15] VITALS: BP 113/41
[2020-05-01] MEDS: normal saline 1000ml 1,000 ML IV SCH ×2 (04:17→10:50)
[2020-05-01 06:00] VITALS: BP 135/60
--- NOTE | 2020-05-01 06:19 | NUR ---
Problems reprioritized. Patient report given, questions answered & plan of care reviewed with Ce GARAY.
[2020-05-01] MEDS: K and/or MAG REPLACEMENT MC SCH (08:00)
[2020-05-01] MEDS: lactobacillus rhamnosus 10,000 MMU CELLS/CAPSULE PO SCH (08:09)
[2020-05-01] MEDS: cyclobenzaprine 10mg tablet PO SCH ×2 (08:09→13:23)
[2020-05-01] MEDS: docusate sod 100mg capsule PO SCH (08:09)
[2020-05-01] MEDS: CefTRIAXone/D5W-Rocephin 1gm 50 ML IV SCH (08:09)
[2020-05-01] MEDS: gabapentin 100mg capsule PO SCH (08:09)
[2020-05-01] MEDS: nystatin 15 GM powder TP SCH (08:10)
--- NOTE | 2020-05-01 08:35 | NUR ---
DM consult: Patient's A1c has already been addressed, see below. DM Consult: Pt A1C 7.1 appropriate given age. Noted Pt no BM since 04/21 8 days without routine bowel care. ELLIE d/w RN regarding routine bowel care as well as opioid antagonist if MD agreeable since receiving dilaudid. To f/u 05/03 for initial assessment. Addendum: 05/01/20 at [address] Amended: Links added.
[2020-05-01 08:40] LABS: BASOPHILS % (AUTO) 0.4 % (0-1); EOSINOPHILS % (AUTO) 0.8 % (0-6); HEMATOCRIT 25.7 % (35.0-45.0); HEMOGLOBIN 8.8 g/dl (12.0-16.0); LYMPHOCYTES % (AUTO) 20.6 % (21-51); MEAN CORPUSCULAR HEMOGLOBIN 37.8 PG (27.0-31.0); MEAN CORPUSCULAR HGB CONC 34.3 g/dL (33.0-36.5); MEAN CORPUSCULAR VOLUME 110.1 FL (78-98); MEAN PLATELET VOLUME 7.5 FL (7.4-10.4); MONOCYTES # (AUTO) 0.3 X10'3 (0-0.9); MONOCYTES % (AUTO) 6.3 % (2-12); NEUTROPHILS # (AUTO) 3.4 X10'3 (1.8-7.7); NEUTROPHILS % (AUTO) 71.9 % (42-75); PLATELET COUNT 236 X10'3 (140-440); RED BLOOD COUNT 2.34 X10'6 (4.20-5.60); RED CELL DISTRIBUTION WIDTH 14.6 % (11.5-14.5); WHITE BLOOD COUNT 4.7 X10'3 (4.5-11.0)
[2020-05-01 08:52] LABS: ALBUMIN 2.8 G/DL (3.4-5.0); ANION GAP 8 (8-16); BLOOD UREA NITROGEN 19 MG/DL (7-18); BUN/CREATININE RATIO 20.4 (6.6-38.0); CALCIUM 10.3 MG/DL (8.5-10.1); CHLORIDE 105 MMOL/L (99-107); CREATININE 0.93 MG/DL (0.40-0.90); GLUCOSE 105 MG/DL (70-104); MAGNESIUM 1.6 MG/DL (1.5-2.4); POTASSIUM 3.8 MMOL/L (3.5-5.1); SODIUM 139 MMOL/L (135-145); eGFR 57 ML/MIN
[2020-05-01 10:00] VITALS: BP 127/57
[2020-05-01 11:06] LABS: PLATELET ESTIMATE NORMAL
[2020-05-01 11:08] LABS: POLYCHROMASIA 1+
[2020-05-01 11:09] LABS: ROULEAUX 1+
--- NOTE | 2020-05-01 14:30 | NUR ---
Appointment made with Dr. Gates 05/21/2020 at 410 pm. Patient made aware.
--- NOTE | 2020-05-01 15:29 | NUR ---
Patient ready for D/C. PIV removed, cannula intact. All belongings gathered and sent to [facility] with patient. Report called to Gabi at [facility].
== END 2020-05-01 15:24 | DRG 478 ==
LOC: ER 06:58 → ED HOLD 11:19 → ORTHO 4S 13:00
PROVIDERS: ADMIT Family Medicine; ATTEND Family Medicine
PROC: 0PB44ZX Excision of Thoracic Vertebra, Percutaneous Endoscopic Approach, Diagnostic (ICD-10-PCS; principal; 2020-04-30)
PROC: 0PS43ZZ Reposition Thoracic Vertebra, Percutaneous Approach (ICD-10-PCS; 2020-04-30)
PROC: 0PU43JZ Supplement Thoracic Vertebra with Synthetic Substitute, Percutaneous Approach (ICD-10-PCS; 2020-04-30)
DX: M80.88XA Other osteoporosis with current pathological fracture, vertebra(e), initial encounter for fracture (principal); N17.9 Acute kidney failure, unspecified; N39.0 Urinary tract infection, site not specified; E46 Unspecified protein-calorie malnutrition; Z16.39 Resistance to other specified antimicrobial drug; N18.9 Chronic kidney disease, unspecified; E11.22 Type 2 diabetes mellitus with diabetic chronic kidney disease; D63.8 Anemia in other chronic diseases classified elsewhere; E78.00 Pure hypercholesterolemia, unspecified; Z66 Do not resuscitate; Z96.641 Presence of right artificial hip joint; Z96.651 Presence of right artificial knee joint; Z60.2 Problems related to living alone; E83.52 Hypercalcemia; E86.0 Dehydration; B96.4 Proteus (mirabilis) (morganii) as the cause of diseases classified elsewhere; G89.29 Other chronic pain; M54.9 Dorsalgia, unspecified; E78.5 Hyperlipidemia, unspecified; Z74.01 Bed confinement status; Z87.11 Personal history of peptic ulcer disease; Z87.891 Personal history of nicotine dependence; Z90.49 Acquired absence of other specified parts of digestive tract; Z90.710 Acquired absence of both cervix and uterus; Z88.2 Allergy status to sulfonamides; Z79.899 Other long term (current) drug therapy; Z68.23 Body mass index [BMI] 23.0-23.9, adult
CPT/HCPCS: 22513; 36415; 71045; 72146; 80048; 80053; 81001; 82330; 82948; 83036; 83735; 85008; 85025; 87077; 87081; 87088; 87186; 88173; 88305; 88341; 88342; 93005; 96374; 96375; 97110; 97112; 97116; 97161; 97530; 99152; 99153; 99285; C1713; G0378; J0696; J1170; J1200; J1650; J2060; J2250; J2270; J2405; J3010; J3490; J7030; Q9967

== ENCOUNTER 2020-09-04 15:23 | Outpatient (CLI) | payer OTHER ==
[~2020-09-04 15:23] MED LIST changes: +ACYC400T PO; +CHOL100025 PO; -CHOL100046 PO; +CYAN500T46 PO; +DEXA4TAB PO; +DEXA4TAB68 PO; +FERR-39 PO; -FERR325T32 PO; +GABA-530 PO; -GABA100C PO; -HYDR-3965 PO; +HYDR-3973 PO; -HYDR-4353 PO; +LENA10CA PO; -LEVO50TA PO; -METF500T PO; -METH-360 PO; +MULT-1085 PO; -OMEG1CAP2 PO; -OMEP20CA15 PO; -ONDA4TAB6 PO; +PROC10TA10 PO; +TRAZ-251 PO; -TRAZ-91 PO; -WALKERFR; +ZINC50TA67 PO; -[UNRECOGNIZED DRUG - CODE]; +iohexol 300mg/ml 100ml inj. ONE
== END 2020-09-04 23:59 | disposition home or self-care (01) ==
LOC: RAD 15:23
PROVIDERS: ATTEND Internal Medicine
DX: J98.2 Interstitial emphysema (principal); E04.1 Nontoxic single thyroid nodule; R79.1 Abnormal coagulation profile; I70.0 Atherosclerosis of aorta; M47.814 Spondylosis without myelopathy or radiculopathy, thoracic region; M81.0 Age-related osteoporosis without current pathological fracture; Z90.49 Acquired absence of other specified parts of digestive tract
CPT/HCPCS: 71260; 78582; A9539; A9540; Q9967

== ENCOUNTER 2020-09-04 16:12 | Emergency (ER) | payer MEDICARE, BC ==
[~2020-09-04] VITALS: Ht 160 cm; Wt 54.5 kg
[~2020-09-04 16:12] MED LIST changes: -iohexol 300mg/ml 100ml inj. ONE
[2020-09-04 17:04] VITALS: BP 125/86
== END 2020-09-04 17:08 | disposition short-term general hospital (02) ==
LOC: ER 16:12
DX: J93.9 Pneumothorax, unspecified (principal); E78.00 Pure hypercholesterolemia, unspecified; E11.9 Type 2 diabetes mellitus without complications; G89.29 Other chronic pain; Z90.49 Acquired absence of other specified parts of digestive tract; Z90.710 Acquired absence of both cervix and uterus; Z72.89 Other problems related to lifestyle; Z90.89 Acquired absence of other organs; Z98.890 Other specified postprocedural states; Z88.2 Allergy status to sulfonamides; Z79.899 Other long term (current) drug therapy
CPT/HCPCS: 99285